=== PATIENT | female | born 1940 ===

== ENCOUNTER → 2018-10-28 14:16 | Outpatient (CLI) | payer MEDICARE, OTHER, SELFPAY | PROVIDERS: PCP Family Medicine; Referring Provider Hospitalist; Visit Provider Family Medicine | DX: E11.622 Type 2 diabetes mellitus with other skin ulcer (principal); S31.100D Unspecified open wound of abdominal wall, right upper quadrant without penetration into peritoneal cavity, subsequent encounter; S71.001D Unspecified open wound, right hip, subsequent encounter; E83.59 Other disorders of calcium metabolism; N18.6 End stage renal disease; E11.22 Type 2 diabetes mellitus with diabetic chronic kidney disease; Z99.2 Dependence on renal dialysis | CPT/HCPCS: 99203; 99215 ==

== ENCOUNTER → 2018-11-04 09:18 | Outpatient (CLI) | payer MEDICARE, OTHER, SELFPAY | PROVIDERS: PCP Family Medicine; Visit Provider Family Medicine | DX: S31.100A Unspecified open wound of abdominal wall, right upper quadrant without penetration into peritoneal cavity, initial encounter (principal); S71.101A Unspecified open wound, right thigh, initial encounter; E83.59 Other disorders of calcium metabolism; Z99.2 Dependence on renal dialysis; N18.6 End stage renal disease; E11.622 Type 2 diabetes mellitus with other skin ulcer; E46 Unspecified protein-calorie malnutrition | CPT/HCPCS: 11042; 11045 ==

== ENCOUNTER → 2018-11-05 | Outpatient (REF) | payer MEDICARE, SELFPAY | LOC: LAB 12:56 | PROVIDERS: PCP Family Medicine; Visit Provider Hospitalist ==